=== PATIENT | male | born 1960 | race African-American/Black ===

== ENCOUNTER 2020-02-28 23:53 | Emergency (ER) | payer OTHER, MEDICAID ==
[~2020-02-28] VITALS: Ht 188 cm; Wt 113.0 kg
[2020-02-29 00:35] LABS: BASOPHILS % 0.9 % (0.0-2.0); EOSINOPHILS % 6.1 % (0.0-5.0); HEMATOCRIT. 36.9 % (42.0-52.0); HEMOGLOBIN. 12.8 g/dL (14.0-18.0); LYMPHOCYTES % 23.5 % (20.0-50.0); MEAN CORPUSCULAR HEMOGLOBIN 31.9 pg (28.0-32.0); MEAN CORPUSCULAR VOLUME 91.6 fL (80.0-94.0); MEAN PLATELET VOLUME 7.6 fl (7.4-10.4); MONOCYTES % 8.5 % (2.0-8.0); PLATELET 228 x1000/uL (130-400); RED BLOOD CELL COUNT 4.03 mill/uL (4.7-6.1); RED CELL DISTRIBUTION WIDTH 13.2 % (11.6-14.6)
[2020-02-29 00:40] LABS: CHLORIDE 108 mEq/L (98-107)
[2020-02-29 01:15] VITALS: BP 126/75
== END 2020-02-29 01:54 | disposition home or self-care (01) ==
LOC: ER 23:53
DX: R07.2 Precordial pain (principal)
CPT/HCPCS: 36415; 71045; 80053; 84484; 85025; 93005; 99285